=== PATIENT | female | born 1995 | race Caucasian/White ===

== ENCOUNTER 2017-01-04 08:48 | Emergency (ER) | payer MEDICAID ==
[~2017-01-04] VITALS: Ht 177.8 cm; Wt 63.5 kg
[2017-01-04 09:39] VITALS: BP 116/67
== END 2017-01-04 10:23 | disposition home or self-care (01) ==
LOC: ER 08:48
DX: Z04.1 Encounter for examination and observation following transport accident (principal); Z88.0 Allergy status to penicillin; V49.40XA Driver injured in collision with unspecified motor vehicles in traffic accident, initial encounter; Y93.89 Activity, other specified; Y99.8 Other external cause status; Y92.488 Other paved roadways as the place of occurrence of the external cause